=== PATIENT | female | born 1960 | race Caucasian/White ===

== ENCOUNTER 2017-06-29 08:06 | Outpatient (RCR) | payer OTHER ==
[~2017-06-29 08:06] MED LIST: CYC10 PO; ERG400 PO; FISH OIL1 CAP PO; HYDR-3083 PO; HYDR-4309 PO; MULT1CAP41 PO
[2017-06-29 12:25] VITALS: BP 112/75
== END 2017-08-14 11:40 | disposition home or self-care (01) ==
LOC: SPU 08:06
PROVIDERS: ATTEND Family Medicine
DX: E83.119 Hemochromatosis, unspecified (principal)
CPT/HCPCS: 85014; 99195

== ENCOUNTER → 2017-08-17 | Outpatient (CLI) | payer OTHER | LOC: RESP 02:25 | PROVIDERS: ATTEND Internal Medicine Pulmonary Disease | DX: G47.33 Obstructive sleep apnea (adult) (pediatric) (principal); R05 Cough; J98.4 Other disorders of lung | CPT/HCPCS: 94060; 94726; 94729 ==

== ENCOUNTER → 2017-10-26 | Outpatient (CLI) | payer OTHER ==
--- NOTE | 2017-10-27 11:33 | RADIOLOGY IMAGING REPORT ---
FACILITY: [facility] [place] PATIENT NAME: STEVIE GALAVIZ : [id number] MR: [id number] V: [id number] EXAM DATE: ORDERING PHYSICIAN: BARBIE VASQUEZ TECHNOLOGIST: Nanci Shah PROCEDURE:BILATERAL DIAGNOSTIC DIGITAL MAMMOGRAM WITH CAD ASSISTED INTERPRETATION & 3D TOMOSYNTHESIS & ULTRASOUND COMPARISON:Prior mammograms 10/14/16 back to 05/25/12. INDICATIONS:BREAST LUMPS WITHOUT PAIN HISTORY: Palpable abnormality upper outer quadrant of Left breast. FINDINGS: The breast parenchyma is dense. In the Right breast there is a questionable 2mm asymmetry seen in the superior aspect of the breast in Zone 3. It dissipates with mediolateral view Spot compression confirming this represents a benign confluence of channels. The Left breast parenchyma appears normal. There is no evidence of a mass. Ultrasound was then performed over the area of concern in the left breast which is likewise normal. Ultrasound will be dictated separately. DIAGNOSTIC CATEGORY 1--NEGATIVE. RECOMMENDATIONS: ROUTINE MAMMOGRAM AND CLINICAL EVALUATION. IMPRESSION: BIRADS 1: Negative. Routine mammographic screening. Dictated by: Ra Carreno M.D. on 10/26/2017 at 16:30 Transcribed by: RENNY on 10/27/2017 at 9:05 Approved by: Ra Carreno M.D. on 10/27/2017 at 11:32 [facility]
== END ==
LOC: MAMO 02:31
PROVIDERS: ATTEND Family Medicine
DX: Z12.31 Encounter for screening mammogram for malignant neoplasm of breast (principal); N63.0 Unspecified lump in unspecified breast
CPT/HCPCS: 77062; 77066

== ENCOUNTER 2017-12-16 13:47 | Outpatient (RCR) | payer OTHER ==
[~2017-12-16 13:47] MED LIST changes: -HYDR-4309 PO; +HYDR-653 PO
[2017-12-16 14:26] VITALS: BP 116/75
== END 2018-02-17 09:07 | disposition home or self-care (01) ==
LOC: SPU 13:47
PROVIDERS: ATTEND Family Medicine
DX: E83.110 Hereditary hemochromatosis (principal)
CPT/HCPCS: 36415; 85014

== ENCOUNTER → 2018-07-15 | Outpatient (CLI) | payer OTHER ==
[~2018-07-15] MED LIST changes: +AMOX-559 PO; +HYDR-385 PO; +ZOLM5SPR NS; +ZOLM5TAB3
--- NOTE | 2018-07-15 12:05 | EKG ---
FACILITY: [facility] PATIENT NAME: STEVIE GALAVIZ : [id number] MR: [id number] V: [id number] EXAM DATE: ORDERING PHYSICIAN: ASHLEY DOTSON TECHNOLOGIST: Test Reason : pre-op Blood Pressure : / mmHG Vent. Rate : 070 BPM Atrial Rate : 070 BPM P-R Int : 146 ms QRS Dur : 084 ms QT Int : 414 ms P-R-T Axes : 068 086 075 degrees QTc Int : 447 ms Sinus rhythm Probable left atrial enlargement No previous ECGs available Confirmed by ISI UMANZOR ([id number] on 07/15/2018 2:40:06 PM Referred By: Confirmed By:ISI UMANZOR
== END ==
LOC: RESP 11:49
PROVIDERS: ATTEND Anesthesiology
DX: Z01.810 Encounter for preprocedural cardiovascular examination (principal); L08.9 Local infection of the skin and subcutaneous tissue, unspecified
CPT/HCPCS: 93005

== ENCOUNTER 2018-07-16 00:49 | Day surgery (SDC) | payer OTHER ==
[~2018-07-16] VITALS: Ht 162.6 cm; Wt 56.2 kg
[~2018-07-16 00:49] MED LIST changes: -AMOX-559 PO; -HYDR-385 PO
[2018-07-16 05:43] VITALS: BP 129/89
[2018-07-16] MEDS ORDERED: MIDAZOLAM 2 MG/2 ML VIAL IVP PRN (06:15)
[2018-07-16] MEDS ORDERED: NORMOSOL R SOLN(*) 1000 ML BAG 1,000 ML IV PRN (06:15)
[2018-07-16] MEDS ORDERED: FAMOTIDINE 20 MG TAB PO ONE (06:15)
[2018-07-16] MEDS ORDERED: LIDOCAINE/SOD BICARB 8.4% SYR ID ONE (06:15)
[2018-07-16] MEDS ORDERED: fentaNYL CITR 250 MCG/5 ML AMP ONE (06:33)
[2018-07-16] MEDS ORDERED: PROPOFOL EMUL(*) 10MG/ML 20 ML 60 ML ONE (06:33)
[2018-07-16] MEDS ORDERED: LIDOCAINE MPF 1% 5 ML VIAL ONE (06:33)
[2018-07-16] MEDS ORDERED: ONDANSETRON 4 MG/2 ML VIAL ONE (06:33)
[2018-07-16] MEDS ORDERED: DEXAMETHASONE SOD PHOS 10MG/ML ONE (06:33)
[2018-07-16] MEDS ORDERED: BACITRACIN/POLYMY B OINT 15 GM TP ONE (06:48)
[2018-07-16] MEDS ORDERED: ROPIVACAINE 0.2% 20 ML VIAL ONE (06:49)
[2018-07-16] MEDS ORDERED: ceFAZolin 1 GM VIAL ONE (07:16)
[2018-07-16] MEDS ORDERED: AMOX-559 PO (08:05)
[2018-07-16] MEDS ORDERED: HYDR-385 PO (08:06)
[2018-07-16] MEDS ORDERED: fentaNYL CITR 100 MCG/2 ML AMP ONE (08:16)
[2018-07-16 08:37] VITALS: BP 107/73
[2018-07-16 08:47] VITALS: BP 108/70
[2018-07-16] MEDS ORDERED: APAP/HYDROCODONE 325/5 TAB PO ONE (09:25)
[2018-07-16 09:53] VITALS: BP 105/73
[2018-07-16 09:55] VITALS: BP 101/73
--- NOTE | 2018-07-16 09:55 | OPERATIVE REPORT 1 ---
EVENT DATE: July 16, 2018 SURGEON: Jacek Helm MD ANESTHESIOLOGIST: Jorge Brambila MD ANESTHESIA: General. TELESERVICES REPRESENTATIVE: Octavio Painter PA-C PREOPERATIVE DIAGNOSIS Presumed infection at right palm with possible foreign body embedded in soft tissues. POSTOPERATIVE DIAGNOSIS Large wood fragment approximately 20 mm in length with no obvious purulence. PROCEDURE PERFORMED Debridement of subcutaneous tissue down to muscle with deep cultures, right palm ([id number]) with removal of 20 mm fragment of wood (simple removal), [id number]. ESTIMATED BLOOD LOSS Minimal. IV FLUIDS 700 cc. TOURNIQUET TIME 6. SPECIMENS Culture swab sent to pathology. The wood was given to the patient. No implants. SUMMARY OF PROCEDURE The patient was brought into the operating room and placed on the OR table in the supine position with a hand table at the right side. After obtaining adequate general anesthesia, the right upper extremity was prepped and draped in the usual sterile fashion. The limb was elevated for exsanguination rather than using an Esmarch. The tourniquet was inflated. I then made a Josefina style incision over the maximum point of swelling and pain in line with the axis of the presumed foreign body entry. This was dissected down in longitudinal fashion with blunt spreading along the path of the neurovascular bundle. During the course of this dissection in the subcutaneous tissue we encountered a longitudinal fragment of wood. Taking care to avoid any further breakage of this, I was able to grasped it with a hemostat and advance it in its direction of travel and the entire thing came out. It measured approximately 20 mm in length. I did not see any purulence surrounding it. It seems like this was primarily a foreign body reaction but we did culture the site of the wood and then just to make sure there was nothing in the sheath beneath it we did open the fiber sheath into the muscle after retracting the neurovascular bundle as there was a question of how many fragments went in. I spread in this area as well. I did not find any additional foreign body nor did I find any additional pocket of pus. Minor debridement was necessary in this area. After exposing this full tissue, we irrigated extensively and then also gave her a gram of Kefzol after deflating the tourniquet. Bipolar cautery was used for hemostasis. Closure was with 5-0 Nylon. She was given a dry sterile nonadherent dressing and then she was awakened and transferred to the recovery area in stable condition. PONCE
== END 2018-07-16 08:37 | disposition home or self-care (01) ==
LOC: OR 00:49
PROVIDERS: ATTEND Orthopaedic Surgery Hand Surgery
DX: M79.5 Residual foreign body in soft tissue (principal); B96.20 Unspecified Escherichia coli [E. coli] as the cause of diseases classified elsewhere
CPT/HCPCS: 10120; 11043; 87070; 87073; 87077; 87186; 87205; J0690; J1100; J2001; J2250; J2405; J2704; J2795; J3010